=== PATIENT | female | born 1990 | race Caucasian/White ===

== ENCOUNTER 2017-02-18 13:44 | Inpatient (IN) | payer OTHER ==
[2017-02-18] MEDS ORDERED: OXYTOCIN 30 UNITS/LR 500 ML IV (14:30)
[2017-02-18] MEDS ORDERED: METHYLERGONOVINE 0.2 MG INJ IM (14:30)
[2017-02-18] MEDS ORDERED: MISOPROSTOL 200 MCG TAB PR (14:30)
[2017-02-18] MEDS ORDERED: IBUPROFEN 600 MG TAB PO (14:30)
[2017-02-18] MEDS ORDERED: LIDOCAINE 1% (MPF) 30 ML INJ INJ (14:30)
[2017-02-18] MEDS ORDERED: HYDROCODONE/APAP (5/325) TAB PO (14:30)
[2017-02-18] MEDS ORDERED: CARBOPROST 250 MCG INJ IM (14:30)
[2017-02-18] MEDS: LACTATED RINGER'S 1,000 ML IV ×3 (14:39→23:38)
[2017-02-18] MEDS: DINOPROSTONE 10 MG VAG SUPP VAG (14:42)
[2017-02-18 14:55] LABS: ADD MAN DIFF? NO
[2017-02-18 14:59] LABS: WHITE BLOOD COUNT 12.8 10^3/ul (4.8-10.8)
[2017-02-18 14:59] LABS: BASOPHILS % 0.3 % (0.0-2.0); EOSINOPHILS # 0.1 10^3/ul (0.0-0.5); EOSINOPHILS % 0.5 % (0.0-7.0); HEMATOCRIT 35.3 % (37.0-47.0); HEMOGLOBIN 11.6 g/dl (12.0-16.0); LYMPHOCYTES # 2.5 10^3/ul (0.8-2.9); LYMPHOCYTES % 19.6 % (15.0-51.0); MEAN CORPUSCULAR HEMOGLOBIN 27.8 pg (29.0-33.0); MEAN CORPUSCULAR HGB CONC 32.9 g/dl (32.0-37.0); MEAN CORPUSCULAR VOLUME 84.4 fl (82.0-101.0); MONOCYTE # 0.6 10^3/ul (0.3-0.9); MONOCYTES % 4.8 % (0.0-11.0); NEUTROPHIL # 9.5 10^3/ul (1.6-7.5); NEUTROPHILS % 74.3 % (39.0-77.0); PLATELET COUNT 261 10^3/UL (140-415); RED BLOOD COUNT 4.18 10^6/ul (4.20-5.40); RED CELL DISTRIBUTION WIDTH 14.1 % (11.5-14.5)
[2017-02-18 15:26] LABS: PROTIME 12.2 Sec (11.9-14.9)
[2017-02-18 15:27] LABS: PARTIAL THROMBOPLASTIN TIME 27.8 Sec (25.0-35.0)
[2017-02-18 15:56] LABS: HEPATITIS B SURFACE ANTIGEN NEGATIVE (NEGATIVE)
[2017-02-18] MEDS: BUTORPHANOL 2 MG INJ IV ×2 (17:12→20:28)
[2017-02-18 19:53] LABS: RAPID PLASMA REAGIN NONREACTIVE (NR)
[2017-02-18] MEDS ORDERED: OXYCODONE/ACETAMINOPHEN (5/325) TAB PO (21:00)
[2017-02-18] MEDS ORDERED: FENTAnyl 2MCG/ML-ROPIV 0.2% 100 ML (23:15)
[2017-02-19] MEDS: OXYTOCIN 30 UNITS/LR 500 ML IV ×3 (02:00→06:40)
[2017-02-19] MEDS ORDERED: NALOXONE (0.4 MG/ML) INJ IV (03:00)
[2017-02-19] MEDS: FENTAnyl 2MCG/ML-ROPIV 0.2% 100 ML BAG EPI (03:08)
[2017-02-19] MEDS: LACTATED RINGER'S 1,000 ML IV* ×2 (03:18→11:18)
[2017-02-19] MEDS ORDERED: MAGNESIUM HYDROXIDE 30ML CUP PO (03:30)
[2017-02-19] MEDS ORDERED: MISOPROSTOL 200 MCG TAB PR (03:30)
[2017-02-19] MEDS ORDERED: ONDANSETRON 4 MG INJ IV (03:30)
[2017-02-19] MEDS ORDERED: OXYTOCIN 30 UNITS/LR 500 ML IV (03:30)
[2017-02-19] MEDS ORDERED: CARBOPROST 250 MCG INJ IM (03:30)
[2017-02-19] MEDS ORDERED: METHYLERGONOVINE 0.2 MG INJ IM (03:30)
[2017-02-19] MEDS ORDERED: ACETAMINOPHEN 325 MG TAB PO (03:30)
[2017-02-19] MEDS: BENZOCAINE 20% 56 ML SPRAY TOP (05:33)
[2017-02-19] MEDS: WITCH HAZEL/GLYCERIN PAD PR (05:34)
[2017-02-19] MEDS: LANOLIN 7 GM TUBE TOP (05:34)
[2017-02-19] MEDS: IBUPROFEN 600 MG TAB PO ×3 (05:35→18:02)
[2017-02-19] MEDS: DIBUCAINE 1% 30 GM OINT PR (11:10)
[2017-02-19] MEDS: SENNA/DOCUSATE NA (8.6MG/50MG) TAB PO (22:00)
[2017-02-20] MEDS: IBUPROFEN 600 MG TAB PO ×4 (00:10→17:45)
[2017-02-20] MEDS: SENNA/DOCUSATE NA (8.6MG/50MG) TAB PO (08:51)
[2017-02-20 08:54] LABS: ADD MAN DIFF? NO
[2017-02-20 08:55] LABS: BASOPHILS % 0.2 % (0.0-2.0); EOSINOPHILS # 0.2 10^3/ul (0.0-0.5); EOSINOPHILS % 1.4 % (0.0-7.0); HEMATOCRIT 30.1 % (37.0-47.0); LYMPHOCYTES # 2.8 10^3/ul (0.8-2.9); LYMPHOCYTES % 26.9 % (15.0-51.0); MEAN CORPUSCULAR HEMOGLOBIN 28.3 pg (29.0-33.0); MEAN CORPUSCULAR HGB CONC 33.2 g/dl (32.0-37.0); MEAN CORPUSCULAR VOLUME 85.3 fl (82.0-101.0); MONOCYTE # 0.8 10^3/ul (0.3-0.9); MONOCYTES % 7.2 % (0.0-11.0); NEUTROPHIL # 6.7 10^3/ul (1.6-7.5); NEUTROPHILS % 63.9 % (39.0-77.0); PLATELET COUNT 212 10^3/UL (140-415); RED BLOOD COUNT 3.53 10^6/ul (4.20-5.40); RED CELL DISTRIBUTION WIDTH 14.3 % (11.5-14.5)
[2017-02-20 08:55] LABS: WHITE BLOOD COUNT 10.5 10^3/ul (4.8-10.8)
[2017-02-21] MEDS: IBUPROFEN 600 MG TAB PO ×3 (00:21→12:08)
[2017-02-21] MEDS: LANOLIN 7 GM TUBE TOP (01:08)
[2017-02-21] MEDS: ACETAMINOPHEN 325 MG TAB PO (09:33)
[2017-02-21] MEDS: DIPHTH/TET/ACEL PERTUSS (ADULT) 0.5 ML VIAL IM* (09:34)
== END 2017-02-21 12:30 | disposition home or self-care (01) | DRG 775 ==
LOC: L-D 13:44 → PP1 02-19 04:23
PROVIDERS: Specialist
PROC: 10E0XZZ Delivery of Products of Conception, External Approach (ICD-10-PCS; principal; 2017-02-18)
PROC: 0W8NXZZ Division of Female Perineum, External Approach (ICD-10-PCS; 2017-02-18)
PROC: 3E033VJ Introduction of Other Hormone into Peripheral Vein, Percutaneous Approach (ICD-10-PCS; 2017-02-18)
DX: O48.0 Post-term pregnancy (principal); Z37.0 Single live birth; Z3A.40 40 weeks gestation of pregnancy
CPT/HCPCS: 62319; 85025; 85610; 85730; 86592; 86900; 86901; 87340; 90715; 99464